=== PATIENT | male | born 1945 | race Caucasian/White ===

== ENCOUNTER 2023-04-27 11:43 | Emergency (ER) | payer OTHER ==
[~2023-04-27] VITALS: Ht 175.3 cm; Wt 68.0 kg
[2023-04-27] MEDS ORDERED: COZAAR25 MG PO (12:31)
[2023-04-27] MEDS ORDERED: TAMSULOSIN0.4 MG PO (12:32)
[2023-04-27] MEDS ORDERED: CLARITIN10 M1 PO (12:32)
[2023-04-27] MEDS ORDERED: SERTRALINE HYD150 MG (12:33)
[2023-04-27] MEDS ORDERED: METOPROLOL TART50 MG PO (12:33)
[2023-04-27] MEDS ORDERED: ASPIRINCHW 81MG PO (12:34)
[2023-04-27 12:58] VITALS: BP 128/79
[2023-04-27 13:01] VITALS: BP 149/80
[2023-04-27 13:18] LABS: BASO% 1.5 % (0-3); EOS% 18.9 % (0-8); HEMOGLOBIN 14.9 g/dl (14.0-18.0); IMMATURE GRANULOCYTES 0.6 % (0.0-5.0); LYMPH% 18.4 % (15-41); MEAN CELL VOLUME 91.8 fL CALC (80.0-100.0); MEAN CORPUSCULAR HGB 29.1 pG CALC (26.0-32.0); MEAN CORPUSCULAR HGB CONC 31.7 g/dL CAL (32.0-36.0); MONO% 8.6 % (2-13); NEUT# 3.56 thou/uL (1.82-7.42); RED BLOOD COUNT 5.12 mill/uL (4.70-6.10); RED CELL DISTRI WIDTH 12.9 % (11.5-15.5)
[2023-04-27 13:33] LABS: ALBUMIN 4.6 g/dL (3.2-5.0); ALKALINE PHOSPHATASE 72 u/l (38-126); ANION GAP 16 (6-22 (CALC)); BILIRUBIN, TOTAL 0.4 mg/dL (0.2-1.3); BUN 17 mg/dL (8-23); BUN/CREATININE RATIO 15 (12-20 (CALC)); CARBON DIOXIDE 26 mmol/l (22-30); CHLORIDE 104 mmol/l (95-108); CREATININE 1.1 mg/dL (0.7-1.3); GFR FOR AFR.AMER. > 60 ML/MIN (>=60 (CALC)); GFR OTHER RACES > 60 ML/MIN (>=60 (CALC)); POTASSIUM 4.6 mmol/l (3.5-5.1); SGOT/AST 39 u/l (19-48); SODIUM 141 mmol/l (137-146); TOTAL PROTEIN 7.6 g/dL (6.3-8.2)
[2023-04-27] MEDS ORDERED: ALBUTEROL108 MCG/AC IN (15:30)
[2023-04-27] MEDS ORDERED: ZPAK PO (15:30)
[2023-04-27 15:42] VITALS: BP 149/80
== END 2023-04-27 15:50 | disposition home or self-care (01) | DRG 203 ==
LOC: ED 11:43
PROVIDERS: Nurse Practitioner Family
DX: J40 Bronchitis, not specified as acute or chronic (principal); I10 Essential (primary) hypertension; I25.10 Atherosclerotic heart disease of native coronary artery without angina pectoris; Z95.5 Presence of coronary angioplasty implant and graft; Z95.0 Presence of cardiac pacemaker